=== PATIENT | male | born 1945 | race Hispanic/Latino ===

== ENCOUNTER 2017-01-13 11:02 | Day surgery (SDC) | payer MEDICARE ==
[2017-01-13 11:56] LABS: Basophils % (Auto) 0.8 % (0.0-1.8); Eosinophils % (Auto) 2.2 % (0.0-4.3); Hematocrit 41.7 % (35.5-45.6); Hemoglobin 13.9 gm/dl (11.8-15.2); Mean Corpuscular HGB Conc 33 % (32-34); Mean Corpuscular Hemoglobin 30 pg (28-32); Mean Corpuscular Volume 90 fl (84-94); Platelet Count 184 K/mm3 (140-440); Red Blood Count 4.63 M/mm3 (3.65-5.03); Red Cell Distribution Width 14.5 % (13.2-15.2); White Blood Count 7.5 K/mm3 (4.5-11.0)
[2017-01-13 12:07] LABS: INR 1.13 (0.87-1.13)
[2017-01-13] MEDS ORDERED: NACL 0.9% 1000 ML 1,000 ML IV SCH (13:00)
--- NOTE | 2017-01-13 13:12 | Anesthesia Day of Surgery ---
Anesthesia Day of Surgery - Day of Surgery Patient Examined: Yes Patient H&P Reviewed: Yes Patient is NPO: Yes
--- NOTE | 2017-01-13 13:12 | Anesthesia Consultation ---
Anesthesia Consult and Med Hx Date of service: 01/13/17 - Airway Anesthetic Teeth Evaluation: Dentures, Edentulous ROM Head & Neck: Adequate Mental/Hyoid Distance: Adequate Mallampati Class: Class II Intubation Access Assessment: Probably Good - Pulmonary Exam CTA: Yes - Cardiac Exam Cardiac Exam: RRR - Pre-Operative Health Status ASA Pre-Surgery Classification: ASA3 Proposed Anesthetic Plan: MAC - Pulmonary Hx Smoking: Yes (quit 3 months ago, 1/2-1 PPD X 50 YRS) Hx Asthma: No COPD: Yes Home Oxygen Therapy: No - Cardiovascular System Hx Hypertension: Yes (EF 35-40%) Hx Coronary Artery Disease: Yes (S/P CABG 2011) Hx Heart Attack/AMI: Yes (2011) Hx Cardia Arrhythmia: Yes (ATRIAL FLUTTER) Hx Peripheral Vascular Disease: Yes (LEG STENTS) - Central Nervous System Hx Seizures: No CVA: No - Gastrointestinal Hx Gastroesophageal Reflux Disease: Yes - Endocrine Hx Insulin Dependent Diabetes: Yes - Hematic Hx Anemia: No - Other Systems Hx Cancer: No
[2017-01-13] MEDS ORDERED: AMIDATE IV ONE (13:21)
[2017-01-13 14:25] VITALS: BP 151/78
[2017-01-13 14:48] LABS: Chloride 102.9 mmol/L (98-107); Potassium 4.1 mmol/L (3.6-5.0); Sodium 139 mmol/L (137-145)
[2017-01-13 14:49] LABS: Anion Gap 20 mmol/L; BUN/Creatinine Ratio 16.25; Blood Urea Nitrogen 13 mg/dL (9-20); Calcium 8.7 mg/dL (8.4-10.2); Carbon Dioxide 20 mmol/L (22-30); Glucose 178 mg/dL (75-100)
--- NOTE | 2017-01-25 21:24 | Electrophysiological Studies ---
ELECTROPHYSIOLOGY OUTPATIENT PROCEDURE PREPROCEDURE DIAGNOSIS: Atrial fibrillation. PROCEDURE PERFORMED: Direct current cardioversion. POSTPROCEDURE DIAGNOSIS: Successful direct current cardioversion to normal sinus rhythm. ANESTHESIA: Local and Monitored anesthesia care per the Anesthesiology service. CLINICAL HISTORY: The patient is a 71-year-old male with a past medical history of atrial fibrillation who presents for direct current cardioversion. DESCRIPTION OF PROCEDURE: The patient was brought to the procedure room. Defibrillator pads were placed in the anterior left sternal region and posterior apical region. Synced biphasic direct current cardioversion of 200 joules was delivered with initial conversion to normal sinus rhythm. COMPLICATIONS: None. ESTIMATED BLOOD LOSS: Zero. IMPRESSION: Successful direct current cardioversion of atrial fibrillation to normal sinus rhythm. PLAN: 1. A 12-lead EKG. 2. Continue oral anticoagulation. 3. Follow up with your special education resource teacher in 3-4 weeks. JOB# [id number] ELI/NTS
== END 2017-01-13 15:00 | disposition home or self-care (01) ==
LOC: OPU 11:02
PROVIDERS: ATTEND Internal Medicine Cardiovascular Disease
DX: I48.91 Unspecified atrial fibrillation (principal); I25.10 Atherosclerotic heart disease of native coronary artery without angina pectoris; E11.9 Type 2 diabetes mellitus without complications; E78.5 Hyperlipidemia, unspecified; J44.9 Chronic obstructive pulmonary disease, unspecified; I10 Essential (primary) hypertension; K21.9 Gastro-esophageal reflux disease without esophagitis; Z79.4 Long term (current) use of insulin; Z79.899 Other long term (current) drug therapy; Z87.19 Personal history of other diseases of the digestive system; Z98.61 Coronary angioplasty status; Z95.1 Presence of aortocoronary bypass graft; Z88.5 Allergy status to narcotic agent; Z98.62 Peripheral vascular angioplasty status; Z87.891 Personal history of nicotine dependence; Z83.3 Family history of diabetes mellitus
CPT/HCPCS: 36415; 80048; 85025; 85610; 85730; 92960; 93005; 93010; J7030